=== PATIENT | female | born 1950 | race Asian ===

== ENCOUNTER 2022-02-19 22:27 | Emergency (ER) | payer OTHER ==
[~2022-02-19] VITALS: Ht 175.3 cm; Wt 72.6 kg
--- NOTE | 2022-02-19 22:38 | NUR ---
Pt to ER w/ c/o N/V w/ x4 vomiting episodes since 1700 today. Respirations even and unlabored, Normal skin color for ethnicity. Pt ambulates with strong, steady gait.
[2022-02-19 22:40] VITALS: BP_SYST 104
--- NOTE | 2022-02-19 23:25 | NUR ---
Patient to ER bed 5 to gown for evaluation. Side rails up. Report given to NORI LEO(REG).
[2022-02-19 23:36] LABS: BASOPHILS % (AUTO) 0.4 % (0.0-2.0); EOSINOPHILS % (AUTO) 0.3 % (0.0-4.0); HEMATOCRIT 40.7 % (36-48); HEMOGLOBIN 14.1 g/dL (12.0-16.0); LYMPHOCYTES % (AUTO) 9.6 % (20.5-51.5); MEAN CORPUSCULAR HEMOGLOBIN 30 pg (27-31); MEAN CORPUSCULAR HGB CONC 35 % (32-36); MEAN CORPUSCULAR VOLUME 86 fL (79.0-98.0); MONOCYTES # (AUTO) 0.7 K/uL (0.0-1.0); MONOCYTES % (AUTO) 6.5 % (1.7-9.3); NEUTROPHILS % (AUTO) 83.2 % (40.0-70.0); PLATELET COUNT (AUTO) 137 K/uL (130-430); RED BLOOD CELL COUNT(AUTO) 4.74 MIL/uL (4.2-6.2); RED CELL DISTRIBUTION WIDTH 13.8 % (9.0-15.0); WHITE BLOOD COUNT (AUTO) 10.9 K/uL (4.8-10.8)
[2022-02-19 23:53] LABS: CALCIUM 8.5 mg/dL (8.4-11.0); CREATININE 0.96 mg/dL (0.55-1.30); POTASSIUM 3.6 mmol/L (3.5-5.1)
[2022-02-19 23:58] LABS: ALBUMIN 3.8 g/dL (3.4-4.8); TOTAL BILIRUBIN 0.5 mg/dL (0.0-1.0)
--- NOTE | 2022-02-20 00:24 | NUR ---
NAKIA Mendoza at bedside examining patient.
--- NOTE | 2022-02-20 00:24 | NUR ---
Pt C/O abdominal pain w/ Vomitting x6 hours AOX4 VSS NAD at this time Will continue to monitor
[2022-02-20] MEDS ORDERED: NACL 0.9% 1,000 ML IV ONE (00:30)
[2022-02-20] MEDS ORDERED: MAG HYDROX/AL HYDROX/SIMETH 30 ML, DICYCLOMINE HCL 20 MG, LIDOCAINE VISCOUS 2% 15ML (PO... PO ONE ×3 (00:30)
[2022-02-20] MEDS ORDERED: ONDANSETRON HCL 4 MG/2 ML VIAL IVP ONE ×2 (00:30)
[2022-02-20] MEDS ORDERED: ANT30 PO (01:48)
[2022-02-20] MEDS ORDERED: ONDA-8 TL (01:48)
[2022-02-20] MEDS ORDERED: OMEP40CA20 PO (01:48)
[2022-02-20] MEDS ORDERED: DICY10CA13 PO (01:48)
[2022-02-20 01:52] VITALS: BP_SYST 126
--- NOTE | 2022-02-20 01:54 | NUR ---
Pt DC per MD DC instructions and medications given Pt verbalized understandings AOX4 VSS NAD at this time Pt exited ED in stable gait
[2022-02-20] MEDS ORDERED: traMADol HCL HCL 50 MG TABLET (ULTRAM) PO ONE (02:00)
[2022-02-20] MEDS ORDERED: traMADol HCL HCL 50 MG TABLET (ULTRAM) ONE (02:08)
== END 2022-02-20 01:53 | disposition home or self-care (01) ==
LOC: SED 22:27
DX: K29.00 Acute gastritis without bleeding (principal); R11.2 Nausea with vomiting, unspecified; K59.00 Constipation, unspecified; I10 Essential (primary) hypertension; Z79.899 Other long term (current) drug therapy
CPT/HCPCS: 36415; 74018; 80053; 83690; 85025; 96374; 99284; J2001; J2405; J7030; 96361